=== PATIENT | male | born 1940 | race Caucasian/White ===

== ENCOUNTER → 2016-08-02 | Outpatient (CLI) | payer MEDICARE ==
[~2016-08-02] MED LIST: CENTRUM SILVER1 TAB PO; CPAP INH; DECADRON1 MG PO; DILAUDID 2MG(HYD2 MG PO; DURAGESIC 25MC25 MCG TOP; ELIQUIS2.5 MG PO; FLEXERIL10 MG PO; HYTRIN UD5 MG PO; LIORESAL10 MG PO; LOVENOX 4040 MG/0.4 SUB-Q; MIRALAX PO527 GM/BOT PO; NEURONTIN100 MG PO; PEPCID20 MG PO; PROSCAR5 MG PO; TYLENOL/COD#31 TAB PO; ULTRAM50 MG PO; VALIUM2 MG PO; VITAMIN B-121000 MCG PO; ZESTORETIC 20/21 TAB PO; ZYRTEC10 M1 PO
== END | disposition disaster alternative care site (69) ==
LOC: GRAD 10:31
DX: R20.2 Paresthesia of skin (principal); M54.9 Dorsalgia, unspecified; M25.559 Pain in unspecified hip; M47.816 Spondylosis without myelopathy or radiculopathy, lumbar region; M48.06 Spinal stenosis, lumbar region; M47.812 Spondylosis without myelopathy or radiculopathy, cervical region; M48.02 Spinal stenosis, cervical region; Z98.890 Other specified postprocedural states